=== PATIENT | female | born 1955 | race Caucasian/White ===

== ENCOUNTER 2021-01-22 17:10 | Emergency (ER) | payer BC ==
[2021-01-22 17:57] LABS: Absolute Neutrophil Ct (ANC) 3.61 (1.4-6.9); BASOPHIL % 0.6 % (0.0-0.4); Basophil (Absolute #) 0.04 (0-0.4); Eosinophil % 4.2 % (0.00-5.0); Eosinophil (Absolute #) 0.29 (0-0.5); Hemoglobin 13.1 gm/dl (12.0-16.0); Lymphocyte (Absolute #) 2.28 (1.0-4.6); Lymphocytes % 33.1 % (24.0-44.0); Mean Cell Volume 95.5 fl (78-100); Mean Corpuscular Hemoglobin 31.3 pg (26-32); Mean Corpuscular Hgb Concent. 32.8 g/dl (32-36); Mean Platelet Volume 9.8 fl (7.5-11.0); Monocyte (Absolute #) 0.66 (0.0-1.3); Monocytes % 9.6 % (0.0-12.0); Neutrophil % 52.5 % (36.0-66.0); Platelet Count 306 K/mm3 (150-450); Red Blood Count 4.19 M/mm3 (4.1-5.4); Red Cell Distribution Width 13.9 % (11.5-14.0); White Blood Count 6.9 K/mm3 (4.0-10.5)
[2021-01-22 18:11] LABS: ALBUMIN 4.4 g/dL (3.5-5.0); BILIRUBIN,TOTAL 0.5 mg/dL (0.2-1.3); Calcium 9.6 mg/dL (8.4-10.2); Creatinine 1 1.05 mg/dL (0.52-1.04); EST GLOMERULAR FILTRATION RATE 56.1 ML/MIN; Potassium 4.1 mmol/L (3.5-5.1); Total Protein 7.1 g/dL (6.3-8.2)
[2021-01-22] MEDS ORDERED: Sodium Chloride 0.9% 500 ML 500 ML IV ONE (18:20)
[2021-01-22] MEDS: Sodium Chloride 0.9% 500 ML 500 ML IV ONE (18:21)
--- NOTE | 2021-01-22 18:31 | ERPHSYRPT ---
- History of Present Illness Time Seen by Provider: 01/22/21 17:15 Source: patient Exam Limitations: no limitations Patient Subjective Stated Complaint: Abdnormal lab- D Dimer 522 Triage Nursing Assessment: Patient ambulated back to ED and transferred self to bed. Patient A+O X3. Patient's skin pink, warm and dry. Patient states she went to Dr. Smith today due to feeling small clots in her veins while shaving her legs. Dr. Smith did D dimer, PT, PT INR and D dimer was elevated at 522 so she told her to come to ED for eval. Patient also had negative ultrasound to BLE for DVT. Physician History: 65 years old female presented to the ER from primary care office with abnormal D-dimers. Patient reports this morning she noticed beadlike swelling in the right lower extremity after she took shower with minimal discomfort which improved on its own. She was seen at primary care office and has ultrasound lower extremities done which is negative but D-dimers are elevated. She denies any chest pain palpitations or shortness of breath. Denies any history of DVT/pulmonary embolism. Does have history of aortic aneurysm but no pain. Timing/Duration: today, resolved prior to arrival, improved Severity: mild Modifying Factors: Improves With: nothing Associated Symptoms: denies symptoms Allergies/Adverse Reactions: No Known Drug Allergies Allergy (Unverified 01/22/21 17:15) Hx Influenza Vaccination/Date Given: Yes Hx Pneumococcal Vaccination/Date Given: No Immunizations Up to Date: Yes Travel Risk - International Travel Have you traveled outside of the country in past 3 weeks: No - Coronavirus Screening Are you exhibiting any of the following symptoms?: No Close contact with a COVID-19 positive Pt in past 14-21 Days: No - Vaccine Status Have you recieved a Covid-19 vaccination: Yes [employer]: Moderna - Vaccination Dates Date of 2cond Vaccination (if applicable): June 2020 - Review of Systems Constitutional: No Symptoms Eyes: No Symptoms Ears, Nose, & Throat: No Symptoms Respiratory: No Symptoms Cardiac: No Symptoms Abdominal/Gastrointestinal: No Symptoms Genitourinary Symptoms: No Symptoms Musculoskeletal: Myalgias Skin: No Symptoms Neurological: No Symptoms Psychological: No Symptoms Endocrine: No Symptoms Hematologic/Lymphatic: No Symptoms Immunological/Allergic: No Symptoms - Past Medical History Pertinent Past Medical History: Yes Neurological History: No Pertinent History ENT History: No Pertinent History Cardiac History: High Cholesterol Respiratory History: No Pertinent History Endocrine Medical History: No Pertinent History Musculoskeletal History: Osteoporosis GI Medical History: No Pertinent History History: No Pertinent History Psycho-Social History: No Pertinent History Female Reproductive Disorders: No Pertinent History - Past Surgical History Past Surgical History: Yes Neuro Surgical History: No Pertinent History Cardiac: No Pertinent History Respiratory: No Pertinent History Gastrointestinal: No Pertinent History Genitourinary: No Pertinent History Female Surgical History: Section Other Surgical History: C section X 3; Breast reduction - Social History Smoking Status: Current some day smoker Exposure to second hand smoke: Yes Drug Use: none Patient Lives Alone: No - Female History Hx Last Menstrual Period: 20 years ago ablation Hx Now: No - Nursing Vital Signs Nursing Vital Signs: Initial Vital Signs Temperature 97.6 F 01/22/21 17:17 Pulse Rate 79 01/22/21 17:17 Respiratory Rate 18 01/22/21 17:17 Blood Pressure 125/88 01/22/21 17:17 O2 Sat by Pulse Oximetry 100 01/22/21 17:17 Pain Scale Pain Intensity 0 - Physical Exam General Appearance: no apparent distress, alert Eye Exam: PERRL/EOMI, eyes nml inspection Ears, Nose, Throat Exam: normal ENT inspection, pharynx normal Neck Exam: normal inspection, supple, full range of motion Respiratory Exam: normal breath sounds, lungs clear Cardiovascular Exam: regular rate/rhythm, normal heart sounds Gastrointestinal/Abdomen Exam: soft, normal bowel sounds, No tenderness Back Exam: normal inspection, normal range of motion Extremity Exam: normal inspection, normal range of motion, pelvis stable, No amber's sign, No limited range of motion, No pedal edema, No swelling, No tenderness Neurologic Exam: alert, oriented x 3, cooperative, academic administrator II-XII nml as tested Skin Exam: normal color SpO2 Interpretation: normal SpO2: 100 O2 Delivery: Room Air - Course EKG Interpreted by Me: RATE ([id number]), NORMAL AXIS, NORMAL INTERVALS, Q-wave (Anteroinferior Q waves) Ordered Tests: Active Orders 24 hr Category Date Time Status EKG-ER Only STAT Care 01/22/21 17:32 Active IV Insertion STAT Care 01/22/21 17:32 Active CHEST WITH CONTRAST [CT] Stat Exams 01/22/21 17:37 Taken CBC W DIFF Stat Lab 01/22/21 17:36 Completed CMP Stat Lab 01/22/21 17:36 Completed TROPONIN Q3H Lab 01/22/21 17:45 Completed TROPONIN Q3H Lab 01/22/21 20:45 Ordered TROPONIN Q3H Lab 01/22/21 23:45 Ordered TROPONIN Q3H Lab 01/23/21 02:45 Ordered TROPONIN Q3H Lab 01/23/21 05:45 Ordered Medication Summary Discontinued Medications Generic Name Dose Route Start Last Admin Trade Name Lan PRN Reason Stop Dose Admin Sodium Chloride 500 mls @ 500 mls/hr 01/22/21 18:18 01/22/21 19:25 Sodium Chloride 0.9% 500 Ml IV 01/22/21 19:17 Infused .Q1H ONE Infusion Sodium Chloride Confirm 01/22/21 18:20 Sodium Chloride 0.9% 500 Ml Administered 01/22/21 18:21 Dose 500 mls @ ud IV .STK-MED ONE Lab/Rad Data: Laboratory Result Diagrams 01/22/21 17:36 01/22/21 17:36 Laboratory Results 01/22/21 01/22/21 01/22/21 Range/Units 17:45 17:36 17:36 WBC 6.9 (4.0-10.5) K/mm3 RBC 4.19 (4.1-5.4) M/mm3 Hgb 13.1 (12.0-16.0) gm/dl Hct 40.0 (35-47) % MCV 95.5 (78-100) fl MCH 31.3 (26-32) pg MCHC 32.8 (32-36) g/dl RDW 13.9 (11.5-14.0) % Plt Count 306 (150-450) K/mm3 MPV 9.8 (7.5-11.0) fl Gran % 52.5 (36.0-66.0) % Eos # (Auto) 0.29 (0-0.5) Absolute Lymphs (auto) 2.28 (1.0-4.6) Absolute Monos (auto) 0.66 (0.0-1.3) Lymphocytes % 33.1 (24.0-44.0) % Monocytes % 9.6 (0.0-12.0) % Eosinophils % 4.2 (0.00-5.0) % Basophils % 0.6 (0.0-0.4) % Absolute Granulocytes 3.61 (1.4-6.9) Basophils # 0.04 (0-0.4) Sodium 139 (137-145) mmol/L Potassium 4.1 (3.5-5.1) mmol/L Chloride 103 (98-107) mmol/L Carbon Dioxide 28 (22-30) mmol/L Anion Gap 12.0 (5-15) MEQ/L BUN 19 H (7-17) mg/dL Creatinine 1.05 H (0.52-1.04) mg/dL Estimated GFR 56.1 ML/MIN Glucose 100 (74-106) mg/dL Calcium 9.6 (8.4-10.2) mg/dL Total Bilirubin 0.50 (0.2-1.3) mg/dL AST 39 H (14-36) U/L ALT 38 H (0-35) U/L Alkaline Phosphatase 74 (38-126) U/L Troponin I < 0.012 (0.000-0.034) ng/mL Serum Total Protein 7.1 (6.3-8.2) g/dL Albumin 4.4 (3.5-5.0) g/dL - Progress Progress: improved, re-examined Progress Note: 01/22/21 20:16 65 years old is evaluated for abnormal D-dimers. He does not have any chest pain or shortness of breath. CTA is obtained which is negative for any acute pulmonary embolism or any other acute cardiopulmonary findings. No acute ischemic findings in the EKG and negative troponins. She has negative ultrasound lower extremities. She is being discharged with outpatient follow- up. Counseled pt/family regarding: lab results, diagnosis, need for follow-up, rad results - Departure Departure Disposition: Home Clinical Impression: Right leg swelling, Elevated d-dimer Condition: Stable Critical Care Time: No Referrals: JUDAH SMITH [Primary Care Provider] - Follow Up with PCP/3 days Instructions: Deep Vein Thrombosis (Blood Clots in the Legs) Additional Instructions: Follow-up with primary care for reevaluation. If you have gained swelling right lower extremity may need another ultrasound in 1 week. Take Tylenol as needed. Return to ER for any worsening leg pain/swelling or if develop chest pain palpitations or shortness of breath.
[2021-01-22 20:50] VITALS: BP 136/97; PULSE 74; O2SAT 98
--- NOTE | 2021-01-23 08:37 | XRAY ---
Indication: Right leg tightness. Elevated d-dimer. Multiple contiguous axial images obtained through the chest using 80 cc Isovue 370 contrast and PE protocol. Comparison: None There is good opacification of the pulmonary arteries to include the lobar and segmental branches. No pulmonary embolus. Heart not enlarged. Aorta normal in course and caliber without aneurysm/dissection. No pathologic mediastinal/hilar lymphadenopathy. Lungs demonstrates mild bilateral dependent atelectasis and tiny left lower lobe calcified granuloma. No suspicious pulmonary mass/nodule, infiltrate, or effusion. Bony thorax intact with mild degenerative changes throughout the spine. Limited upper abdomen demonstrates mild fatty liver. Impression: 1. Negative pulmonary embolus. No acute cardiopulmonary abnormalities. 2. Incidental fatty liver and left lower lobe calcified granuloma.
== END 2021-01-22 20:30 | disposition home or self-care (01) ==
LOC: ED 17:10
DX: M79.89 Other specified soft tissue disorders (principal); R79.89 Other specified abnormal findings of blood chemistry
CPT/HCPCS: 36000; 36415; 71260; 80053; 84484; 85025; 93005; 99284